=== PATIENT | female | born 1985 | race Caucasian/White ===

== ENCOUNTER 2016-06-07 11:10 | Emergency (ER) | payer SELFPAY ==
[~2016-06-07] VITALS: Ht 162.6 cm; Wt 95.0 kg
[2016-06-07] MEDS ORDERED: KEFLEX500 MG PO (11:25)
[2016-06-07 11:45] VITALS: BP 141/90
== END 2016-06-07 11:50 | disposition home or self-care (01) | DRG 605 ==
LOC: ED 11:10
PROC: 0HQGXZZ Repair Left Hand Skin, External Approach (ICD-10-PCS; principal; 2016-06-07)
DX: S61.012A Laceration without foreign body of left thumb without damage to nail, initial encounter (principal); W26.0XXA Contact with knife, initial encounter